=== PATIENT | female | born 1940 | race Caucasian/White ===

== ENCOUNTER 2017-09-11 11:25 | Emergency (ER) | payer MEDICARE ==
[2017-09-11 12:06] VITALS: BP 208/107
--- NOTE | 2017-09-11 12:17 | UC ---
Respiratory Complaint HPI - HPI Summary HPI Summary: 77 YEAR OLD FEMALE PRESENTS WITH COMPLAINS OF SEVERE FEVER, CHILLS, NAUSEA, AND VOMITING. - History of Current Complaint Chief Complaint: UCRespiratory Stated Complaint: COUGH NAUSEA WEAKNESS Time Seen by Provider: 09/11/17 12:17 Hx Obtained From: Patient Hx Last Menstrual Period: n/a Onset/Duration: Sudden Onset Severity Initially: Moderate Severity Currently: Moderate Pain Scale Used: 0-10 Numeric - 5 - Allergies/Home Medications Allergies/Adverse Reactions: Allergies Allergy/AdvReac Type Severity Reaction Status Date / Time Cephalexin [From Keflex] Allergy Severe Anaphylatic Verified 09/11/17 12:07 Shock Penicillins Allergy Severe Difficulty Verified 09/11/17 12:07 breathing ,hives Aspirin Allergy Difficulty Verified 09/11/17 12:07 Breathing Escitalopram [From Lexapro] AdvReac Severe fearfullnes Verified 09/11/17 12:07 s Varenicline [From Chantix] AdvReac Severe nightmares, Verified 09/11/17 12:07 insomnia Home Medications: Home Medications Blood Thinner Tab 1 tab PO DAILY 09/11/17 [History Confirmed 09/11/17] Injection For Anemia 1 inj IM SEE INSTRUCTIONS 09/11/17 [History] Lansoprazole [Prevacid] 30 mg PO DAILY 09/11/17 [History Confirmed 09/11/17] traMADol TAB* [Ultram*] 25 mg PO Q8H PRN 09/11/17 [History Confirmed 09/11/17] PMH/Surg Hx/FS Hx/Imm Hx Previously Healthy: Yes Other History Of: Anticoagulant Therapy Negative For: HIV, Hepatitis B, Hepatitis C - Surgical History Surgical History: Yes Surgery Procedure, Year, and Place: Left arm surgery with kemi placement. D&C many years ago. T&A - Family History Known Family History: Positive: Cardiac Disease, Hypertension - Social History Alcohol Use: None Alcohol Amount: 1 drink daily Substance Use Type: None Smoking Status (MU): Former Smoker Type: Cigarettes Amount Used/How Often: quit 4 years ago - Immunization History Most Recent Influenza Vaccination: FALL 2013 Review of Systems Constitutional: Fever, Chills Skin: Negative Eyes: Negative ENT: Negative Respiratory: Cough Cardiovascular: Negative Gastrointestinal: Nausea Genitourinary: Negative Motor: Negative Neurovascular: Negative Musculoskeletal: Negative Neurological: Negative Psychological: Negative All Other Systems Reviewed And Are Negative: Yes Physical Exam Triage Information Reviewed: Yes Appearance: Ill-Appearing Vital Signs: Initial Vital Signs Temp 37.3 C 09/11/17 11:57 Pulse 108 09/11/17 11:57 Resp 18 09/11/17 11:57 BP 208/107 09/11/17 11:57 Pulse Ox 99 09/11/17 11:57 Vital Signs Reviewed: Yes Eye Exam: Normal ENT Exam: Normal Dental Exam: Normal Neck exam: Normal Neck: Positive: 1 Respiratory: Positive: Rhonchi, Wheezing Cardiovascular Exam: Normal Abdominal Exam: Normal Musculoskeletal Exam: Normal Neurological Exam: Normal Psychological Exam: Normal Skin Exam: Normal UC Diagnostic Evaluation - Laboratory O2 Sat by Pulse Oximetry: 99 Respiratory Course/Dx - Differential Dx/Diagnosis Provider Diagnoses: FEVER. CHILLS. COUGH. NAUSEA Discharge - Discharge Plan Condition: Stable Disposition: OTHER Discharge Disposition Comment: PATIENT SUGGESTED TO GO TO ER FOR NAUSEA, FEVER, CHILLS AND COUGH Referrals: Hammad Juarez MD [Primary Care Provider] - Additional Instructions: PATIENT SUGGESTED TO GO TO ER FOR NAUSEA, FEVER, CHILLS AND COUGH
== END 2017-09-11 12:39 ==
LOC: UCCORT 11:25
DX: R50.9 Fever, unspecified (principal); R11.0 Nausea
CPT/HCPCS: 99212; G0463

== ENCOUNTER 2018-04-20 13:30 | Emergency (ER) | payer MEDICARE ==
[2018-04-20 14:03] VITALS: BP 130/73
--- NOTE | 2018-04-20 15:13 | ED ---
GI/ HPI - HPI Summary HPI Summary: 78 yr old female with the complaint of dysuria and frequency of urination. Onset of symptoms four hours ago. No fever, chills, dizziness, nausea, vomiting or back or abdominal pain. - History of Current Complaint Chief Complaint: UCGU Time Seen by Provider: 04/20/18 14:46 Stated Complaint: URINARY COMPLAINT Hx Last Menstrual Period: n/a Pain Intensity: 0 - Allergy/Home Medications Allergies/Adverse Reactions: Allergies Allergy/AdvReac Type Severity Reaction Status Date / Time aspirin Allergy Difficulty Verified 04/20/18 14:05 Breathing cephalexin [From Keflex] Allergy Anaphylatic Verified 04/20/18 14:05 Shock escitalopram [From Lexapro] Allergy Anaphylatic Verified 04/20/18 14:05 Shock Penicillins Allergy Anaphylatic Verified 04/20/18 14:05 Shock varenicline [From Chantix] Allergy Anaphylatic Verified 04/20/18 14:05 Shock Home Medications: Home Medications Ticagrelor (NF) [Brilinta 60 MG TAB] 60 mg PO DAILY 04/20/18 [History Confirmed 04/20/18] PMH/Surg Hx/FS Hx/Imm Hx Endocrine/Hematology History: Reports: Hx Anticoagulant Therapy, Hx Diabetes - managed by diet now Denies: Hx Thyroid Disease Cardiovascular History: Reports: Hx Hypertension Denies: Hx Congestive Heart Failure, Hx Deep Vein Thrombosis, Hx Myocardial Infarction, Hx Pacemaker/ICD Respiratory History: Denies: Hx Asthma, Hx Chronic Obstructive Pulmonary Disease (COPD), Hx Lung Cancer, Hx Pneumonia, Hx Pulmonary Embolism GI History: Denies: Hx Gall Bladder Disease, Hx Gastrointestinal Bleed, Hx Ulcer, Hx Urosepsis History: Denies: Hx Kidney Stones, Hx Renal Disease Neurological History: Denies: Hx Dementia, Hx Migraine, Hx Seizures, Hx Transient Ischemic Attacks (TIA) Psychiatric History: Reports: Hx Depression Denies: Hx Anxiety, Hx Schizophrenia, Hx Bipolar Disorder - Surgical History Surgery Procedure, Year, and Place: Left arm surgery with kemi placement. D&C many years ago. T&A Infectious Disease History: No Infectious Disease History: Reports: Hx Shingles Denies: Hx Hepatitis, Traveled Outside the [place] in Last 30 Days - Family History Known Family History: Positive: Cardiac Disease, Hypertension - Social History Alcohol Use: None Alcohol Amount: 1 drink daily Substance Use Type: Reports: None Smoking Status (MU): Former Smoker Type: Cigarettes Amount Used/How Often: quit 4 years ago Have You Smoked in the Last Year: No Review of Systems Constitutional: Negative Positive: dysuria, frequency All Other Systems Reviewed And Are Negative: Yes Physical Exam Triage Information Reviewed: Yes Vital Signs On Initial Exam: Initial Vitals Temp Pulse Resp BP Pulse Ox 98.0 F 88 15 130/73 100 04/20/18 13:54 04/20/18 13:54 04/20/18 13:54 04/20/18 13:54 04/20/18 13:54 Vital Signs Reviewed: Yes Appearance: Positive: Well-Appearing, No Pain Distress Skin: Positive: Warm, Skin Color Reflects Adequate Perfusion Head/Face: Positive: Normal Head/Face Inspection Eyes: Positive: EOMI ENT: Positive: Pharyngeal erythema Neck: Positive: Supple, Nontender Respiratory/Lung Sounds: Positive: Clear to Auscultation, Breath Sounds Present Cardiovascular: Positive: RRR. Negative: Murmur Abdomen Description: Positive: Nontender. Negative: CVA Tenderness (R), CVA Tenderness (L) Musculoskeletal: Positive: Strength/ROM Intact Neurological: Positive: Sensory/Motor Intact, Alert, Oriented to Person Place, Time, CN Intact II-III Psychiatric: Positive: Normal - Monty Coma Scale Best Eye Response: 4 - Spontaneous Best Motor Response: 6 - Obeys Commands Best Verbal Response: 5 - Oriented Coma Scale Total: 15 Diagnostics - Vital Signs Vital Signs Temp Pulse Resp BP Pulse Ox 04/20/18 13:54 98.0 F 88 15 130/73 100 - Laboratory Lab Results: Lab Results 04/20/18 Range/Units 14:45 POC Urine Color Light yellow POC Urine Clarity Cloudy POC Urine pH 6.0 (5-9) POC Ur Specif [place] 1.020 (1.010-1.030) POC Urine Protein 3+ A (Negative) POC Ur Glucose (UA) Trace A (Negative) POC Urine Ketones Negative (Negative) POC Urine Blood 2+ A (Negative) POC Urine Nitrite Negative (Negative) POC Urine Bilirubin Negative (Negative) POC Urine Urobilinogen 0.2 (Negative) POC U Leukocyte Esteras 2+ A (Negative) Lab Statement: Any lab studies that have been ordered have been reviewed, and results considered in the medical decision making process. GIGU Course/Dx - Course Course Of Treatment: 78 yr old with UTI. Plan DC home in good condition on cipro 250 po bid. - Diagnoses Provider Diagnoses: UTI (urinary tract infection) Discharge - Sign-Out/Discharge Documenting (check all that apply): Discharge/Admit/Transfer - Discharge Plan Condition: Good Disposition: HOME Prescriptions: Ciprofloxacin TAB* [Cipro 250 MG Tab*] 250 mg PO BID #10 tab Patient Education Materials: Urinary Tract Infection in Women (DC) Referrals: Hammad Juarez MD [Primary Care Provider] - 2 Days - Billing Disposition and Condition Condition: GOOD Disposition: HOME
== END 2018-04-20 15:15 | disposition home or self-care (01) ==
LOC: UCCORT 13:30
DX: N39.0 Urinary tract infection, site not specified (principal); I10 Essential (primary) hypertension; Z88.6 Allergy status to analgesic agent; Z88.1 Allergy status to other antibiotic agents; Z88.8 Allergy status to other drugs, medicaments and biological substances; Z88.0 Allergy status to penicillin; E11.9 Type 2 diabetes mellitus without complications; Z87.891 Personal history of nicotine dependence
CPT/HCPCS: 81003; 87086; 99212; G0463